=== PATIENT | male | born 1955 | race Hispanic/Latino ===

== ENCOUNTER 2018-02-05 07:06 | Day surgery (SDC) | payer BC ==
[2016-03-24 10:26] VITALS: BMI 37.5
[2018-02-05] MEDS ORDERED: Etomidate 20 mg/10ml Inj IV ONE (08:26)
[2018-02-05] MEDS ORDERED: Propofol 10 mg/ml Inj (20 ML) ONE (08:26)
[2018-02-05] MEDS ORDERED: Succinylcholine 200 mg/10 ml Inj IV ONE (08:37)
[2018-02-05] MEDS ORDERED: Sodium Chloride 0.9% 1,000 ML IV SCH (10:30)
[2018-02-05 11:03] VITALS: BP 116/77; PULSE 85; RESP 16; TEMP 98.2; O2SAT 98
== END 2018-02-05 11:40 | disposition home or self-care (01) ==
LOC: ENDO 07:06
PROVIDERS: ATTEND Internal Medicine Gastroenterology
DX: K29.50 Unspecified chronic gastritis without bleeding (principal); K44.9 Diaphragmatic hernia without obstruction or gangrene; K21.9 Gastro-esophageal reflux disease without esophagitis; K92.1 Melena; K57.30 Diverticulosis of large intestine without perforation or abscess without bleeding; K64.8 Other hemorrhoids
CPT/HCPCS: 43239; 45378; 88305; 88312; 88342; J0330; J2001; J2704; J7040 ×2